=== PATIENT | male | born 1985 | race Caucasian/White ===

== ENCOUNTER 2021-04-12 09:56 | Emergency (ER) | payer OTHER ==
[~2021-04-12] VITALS: Ht 170.2 cm; Wt 77.7 kg
--- NOTE | 2021-04-12 10:24 | PHYS DOC ---
Past History Past Surgical History: No Surgical History General Adult EDM: Chief Complaint: CHEST PAIN HPI: HPI: Patient is a 35-year-old male who presents to the emergency department today for "heartburn from hell". Patient reports that his sons have been sick with a GI virus and last night he had nausea, vomiting and diarrhea. He reports that those symptoms have resolved today but he was at home and started getting a burning/stinging pain in his epigastric region. He states that it felt like a "bubble" like he needed to belch. Patient reports that he has had this pain for the last 2 hours and it has gotten worse. He rates his pain 4 out of 10. No treatment prior to arrival. Patient denies any blood in his stools or vomit, urinary symptoms, fever, shortness of breath. Patient has a history of GERD. He does not smoke. No immediate family history of CAD. Review of Systems: Review of Systems: Constitutional: negative unless reported in HPI Eyes: negative unless reported in HPI HENT: negative unless reported in HPI Respiratory: negative unless reported in HPI Cardiovascular: negative unless reported in HPI GI: negative unless reported in HPI : negative unless reported in HPI Musculoskeletal: negative unless reported in HPI Integument: negative unless reported in HPI Neurologic: negative unless reported in HPI Endocrine: negative unless reported in HPI Lymphatic: negative unless reported in HPI Psychiatric: negative unless reported in HPI Physical Exam: PE: Constitutional: Well developed, well nourished, no acute distress, non-toxic appearance. [] HENT: Normocephalic, atraumatic, bilateral external ears normal, oropharynx moist, no oral exudates, nose normal. [] Eyes: PERRL, EOMI, conjunctiva normal, no discharge. [] Neck: Normal range of motion, no stridor Cardiovascular:Heart rate regular rhythm, no murmur, epigastric pain [] Lungs & Thorax: Bilateral breath sounds clear to auscultation [] Abdomen: Bowel sounds normal, soft, no tenderness, no abdominal rigidity or guarding, no masses, no pulsatile masses. [] Skin: Warm, dry, no erythema, no rash. [] Back: Normal range of motion Extremities: No tenderness, no cyanosis, no clubbing, ROM intact, no edema. [] Neurologic: Alert and oriented X 3, normal motor function, normal sensory function, no focal deficits noted. [] Psychologic: Affect normal, judgement normal, mood normal. [] Current Patient Data: Labs: Laboratory Tests Test 04/12/21 10:32 White Blood Count 5.2 x10^3/uL Red Blood Count 4.77 x10^6/uL Hemoglobin 15.2 g/dL Hematocrit 43.5 % Mean Corpuscular Volume 91 fL Mean Corpuscular Hemoglobin 32 pg Mean Corpuscular Hemoglobin Concent 35 g/dL Red Cell Distribution Width 13.4 % Platelet Count 179 x10^3/uL Neutrophils (%) (Auto) 79 % Lymphocytes (%) (Auto) 12 % Monocytes (%) (Auto) 8 % Eosinophils (%) (Auto) 1 % Basophils (%) (Auto) 0 % Neutrophils # (Auto) 4.1 x10^3uL Lymphocytes # (Auto) 0.7 x10^3/uL Monocytes # (Auto) 0.4 x10^3/uL Eosinophils # (Auto) 0.1 x10^3/uL Basophils # (Auto) 0.0 x10^3/uL Sodium Level 134 mmol/L Potassium Level 4.2 mmol/L Chloride Level 98 mmol/L Carbon Dioxide Level 29 mmol/L Anion Gap 7 Blood Urea Nitrogen 15 mg/dL Creatinine 1.0 mg/dL Estimated GFR (Cockcroft-Gault) 86.1 BUN/Creatinine Ratio 15 Glucose Level 102 mg/dL Calcium Level 9.3 mg/dL Total Bilirubin 0.8 mg/dL Aspartate Amino Transf (AST/SGOT) 16 U/L Alanine Aminotransferase (ALT/SGPT) 33 U/L Alkaline Phosphatase 78 U/L Troponin I High Sensitivity < 4 ng/L Total Protein 7.3 g/dL Albumin 4.2 g/dL Albumin/Globulin Ratio 1.4 Lipase 29 U/L Current Medications Medications (Trade) Dose Ordered Sig/Keith Route PRN Reason Start Time Stop Time Status Last Admin Dose Admin Sodium Chloride 1,000 ml @ 1,000 mls/hr Q1H IV 04/12/21 10:30 04/12/21 11:29 04/12/21 10:35 Multi-Ingredient Mouthwash/Gargle (Gi Cocktail) 20 ml 1X ONCE PO 04/12/21 10:30 04/12/21 10:31 DC 04/12/21 10:35 Vital Signs: Vital Signs Date Time Temp Pulse Resp B/P (MAP) Pulse Ox O2 Delivery O2 Flow Rate FiO2 04/12/21 10:08 97.9 88 16 140/73 (95) 96 Room Air EKG: EKG: [] EKG performed by ER staff at 1035 shows sinus rhythm with a rate of 92, QTC o f 405, no STEMI read by Dr. Felix at 1035 Radiology/Procedures: Radiology/Procedures: []PROCEDURE: PORTABLE CHEST 1V Single view of the chest. 04/12/2021 10:28 AM Indication: Reason: epigastric pain Comparison: None Findings: There is no focal consolidation. There is no pleural effusion or pneumothorax. The cardiomediastinal silhouette and pulmonary vasculature are within normal limits. No acute osseous abnormalities are seen. Impression: No evidence of acute cardiopulmonary process. Electronically signed by: Nando Lin MD (04/12/2021 10:46 AM) [id number] DICTATED AND SIGNED BY: NANDO LIN MD DATE: 04/12/21 103 CC: JANICE LITTLE DO; DAVID GAN TRAFFIC CIRCUIT ENGINEER ~MTH0 0 Heart Score: C/O Chest Pain: Yes HEART Score for Chest Pain: HEART Score for Chest Pain Response (Comments) Value History Slighlty/Non-Suspicious 0 ECG Normal 0 Age < 45 0 Risk Factors No Risk Factors 0 Troponin < Normal Limit 0 Total 0 Risk Factors: Risk Factors: DM, Current or recent (<one month) smoker, HTN, HLP, family history of CAD, obesity. Risk Scores: Score 0 - 3: 2.5% MACE over next 6 weeks - Discharge Home Score 4 - 6: 20.3% MACE over next 6 weeks - Admit for Clinical Observation Score 7 - 10: 72.7% MACE over next 6 weeks - Early Invasive Strategies Course & Med Decision Making: Course & Med Decision Making Pertinent Labs and Imaging studies reviewed. (See chart for details) [] Patient presents to the emergency department today for epigastric burning pain that started 2 hours prior to ER arrival. Last night patient reports that he did have a GI viral illness that he thought he caught from his sons who have been sick with similar symptoms and he had nausea, vomiting and diarrhea throughout the night. Patient reports that those symptoms have resolved but he feels a burning sensation in his epigastric region. Work-up in the ER consisted of blood work, EKG and chest x-ray to rule out cardiac cause for his epigastric pain. Patient treated with IV fluids and a GI cocktail. Patient's blood work, EKG and chest x-ray were unremarkable. Patient had a negative troponin. Patient reports following GI cocktail, his symptoms have improved. Patient's heart score is zero. Patient advised to take Pepcid at home for his reflux symptoms. Patient educated on foods to avoid that may exacerbate his symptoms. I discussed with patient all findings and diagnostic testing as well as the need to follow-up with PCP for further evaluation and treatment or return to the ER if any new or worsening symptoms. Strict return precautions were also discussed at length. Patient voiced understanding and agreement with the plan. Patient is hemodynamically stable at the time of disposition. Zoe Disclaimer: Zoe Disclaimer: This electronic medical record was generated, in whole or in part, using a voice recognition dictation system. Departure Departure: Impression: Primary Impression: Epigastric pain Disposition: HOME / SELF CARE / HOMELESS Condition: GOOD Referrals: JANICE LITTLE DO (PCP) Patient Instructions: Chest Pain (Nonspecific), [id number], Diet for Gastroesophageal Reflux Disease, Adult Additional Instructions: You were seen in the emergency department today for epigastric pain after nausea and vomiting last night. As we discussed, at this time it does not appear that you are experiencing acute coronary syndrome. Your blood work was unremarkable. Chest x-ray showed no acute findings. However, if you go home and your chest pain gets worse or changes in any way you have any symptoms of shortness of breath, nausea, vomiting, dizziness you need to return to the e mergency department immediately. Please take Pepcid [id number] for your symptoms. Please avoid any spicy, greasy or fatty foods. I would stick to a bland diet such as bananas, rice, applesauce and toast. Follow-up with your primary care provider tomorrow regarding your ER visit. Return to the emergency department if you develop intractable nausea or vomiting, blood in your stools or vomit, high fevers refractory to treatment, chest pain, shortness of breath, dizziness. DAVID GAN APRN Apr 12, 2021 10:24
[2021-04-12] MEDS ORDERED: LIDO:MAALOX 1:1 20 ML SINGLE DOSE. PO ONE (10:30)
[2021-04-12] MEDS ORDERED: IV NORMAL SALINE 1,000ML 1,000 ML IV SCH (10:30)
--- NOTE | 2021-04-12 10:39 | EKG ---
[address] [address] Test Date: 2021-04-12 Test Time: 10:35:27 Pat Name: SAMM STATON Department: Room: Gender: M Animal Cytologist: YOVANA : 1985 Requested By: DAVID GAN Order Number: [id number] Reading MD: Andrea Jc Measurements Intervals [place] Rate: 92 P: 29 ME: 154 QRS: -14 QRSD: 76 T: 13 QT: 324 QTc: 405 Interpretive Statements SINUS RHYTHM LEFTWARD AXIS MILD NON SPECIFIC ST CHANGES Electronically Signed On 04-17-2021 18:24:37 SEAL MIXING OPERATOR by Andrea Jc
--- NOTE | 2021-04-12 10:48 | RAD ---
Single view of the chest. 04/12/2021 10:28 AM Indication: Reason: epigastric pain Comparison: None Findings: There is no focal consolidation. There is no pleural effusion or pneumothorax. The cardiome diastinal silhouette and pulmonary vasculature are within normal limits. No acute osseous abnormaliti es are seen. Impression: No evidence of acute cardiopulmonary process. Electronically signed by: Nando Cameron MD (04/12/2021 10:46 AM) [id number]
[2021-04-12 10:50] LABS: BASO % 0 % (0-3); EOS # 0.1 x10^3/uL (0.0-0.7); EOS % 1 % (0-3); HEMATOCRIT 43.5 % (39.0-53.0); HEMOGLOBIN 15.2 g/dL (13.0-17.5); LYMPH # 0.7 x10^3/uL (1.0-4.8); LYMPH % 12 % (24-48); MEAN CORPUSCULAR HEMOGLOBIN 32 pg (25-35); MEAN CORPUSCULAR HGB CONC 35 g/dL (31-37); MEAN CORPUSCULAR VOLUME 91 fL (79-100); MONO # 0.4 x10^3/uL (0.0-1.1); MONO % 8 % (0-9); NEUT # 4.1 x10^3uL (1.8-7.7); NEUT % 79 % (31-73); PLATELET COUNT 179 x10^3/uL (140-400); RED BLOOD COUNT 4.77 x10^6/uL (4.30-5.70); RED CELL DISTRIBUTION WIDTH 13.4 % (11.5-14.5); WHITE BLOOD COUNT 5.2 x10^3/uL (4.0-11.0)
[2021-04-12 10:59] LABS: CALCIUM 9.3 mg/dL (8.5-10.1); GFR 86.1; POTASSIUM 4.2 mmol/L (3.5-5.1)
[2021-04-12 11:05] LABS: ALBUMIN 4.2 g/dL (3.4-5.0); ALBUMIN/GLOBULIN RATIO 1.4 (1.0-1.7); TOTAL BILIRUBIN 0.8 mg/dL (0.2-1.0); TOTAL PROTEIN 7.3 g/dL (6.4-8.2)
[2021-04-12 11:28] VITALS: BP 134/84
== END 2021-04-12 11:28 | disposition home or self-care (01) ==
LOC: ER 09:56
DX: R10.13 Epigastric pain (principal); R11.2 Nausea with vomiting, unspecified; R19.7 Diarrhea, unspecified
CPT/HCPCS: 36415; 71045; 80053; 83690; 84484; 85025; 93005; 96360; 99285; J7030